=== PATIENT | male | born 1990 | race African-American/Black ===

== ENCOUNTER 2021-10-17 16:21 | Emergency (ER) | payer OTHER ==
[~2021-10-17] VITALS: Ht 182.9 cm; Wt 83.9 kg
--- NOTE | 2021-10-17 16:45 | NUR ---
BIBS THIS 31YO MALE PATIENT WITH CC OF LACERATION ON THE LEFT THUMB AND PINKY TODAY, TDAP 2018. PLACED COMFORTABLY IN BED. VITALS CHECKED.
--- NOTE | 2021-10-17 17:52 | NUR ---
LEANN TAYLOR AT BED SIDE FOR SUTURING.
--- NOTE | 2021-10-17 18:20 | NUR ---
Patient discharged to home in stable condition. Written and verbal after care instructions given. Patient verbalizes understanding of instruction.
[2021-10-17 18:28] VITALS: BP 145/88
== END 2021-10-17 18:30 | disposition home or self-care (01) ==
LOC: ER 16:29
DX: S61.012A Laceration without foreign body of left thumb without damage to nail, initial encounter (principal); S61.217A Laceration without foreign body of left little finger without damage to nail, initial encounter; W26.8XXA Contact with other sharp object(s), not elsewhere classified, initial encounter; Y93.89 Activity, other specified; Y92.89 Other specified places as the place of occurrence of the external cause; Y99.0 Civilian activity done for income or pay
CPT/HCPCS: 73130-TC